=== PATIENT | female | born 2000 | race Caucasian/White ===

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

== ENCOUNTER 2022-01-09 02:06 | Day surgery (SDC) | payer BC ==
[~2022-01-09] VITALS: Wt 53.4 kg
[~2022-01-09 02:06] MED LIST changes: +CIPR500 PO; +METR500 PO
== END 2022-01-09 16:25 | disposition home or self-care (01) ==
LOC: ATC 02:06
DX: K50.10 Crohn's disease of large intestine without complications (principal)
CPT/HCPCS: A9270; J1200; J2920; J7050; Q5103

== ENCOUNTER 2022-03-06 01:09 | Day surgery (SDC) | payer BC ==
[~2022-03-06] VITALS: Wt 55.3 kg
--- NOTE | 2022-03-06 16:03 | NUR ---
INFUSION REACTION: PATIENT IV BUMPED FROM 20ML/HR TO 40 AND PATIENT INSTANTLY GOT HOT, RED, AND REPORTED A SCRATCHY THROAT AND MILD TIGHTNESS. INFUSION STOPPED. AN ADDITIONAL 40 MG DOSE OF SOLUMEDROL GIEN PER REACTION PROTOCOL. AFTER 5 MIN INFUSION RESTARTED AT 10 ML/HR. PATIENT EXPERIENXING NO FURTHER SYMPTOMS. ATTEMPTED TO CALL THE PROVIDER TO DISCUSS HER REPEATED REACTIONS WITH EACH INFUSION AND THEY ARE UNAVAILABLE. PATIENT IS STABLE AND VITALS STABLE. WILL CALL PROVIDER NEXT WEEK TO NOTIFY
== END 2022-03-06 17:01 | disposition home or self-care (01) ==
LOC: ATC 01:09
DX: K50.90 Crohn's disease, unspecified, without complications (principal); K52.9 Noninfective gastroenteritis and colitis, unspecified
CPT/HCPCS: 96375; 96376; 96413; 96415; A9270; J1200; J2920; J7050; Q5103

== ENCOUNTER 2022-05-01 00:18 | Day surgery (SDC) | payer BC | END 2022-05-01 16:55 | disposition home or self-care (01) | LOC: ATC 00:18 | DX: K50.90 Crohn's disease, unspecified, without complications (principal) | CPT/HCPCS: J1200; J2920; J7050; Q5103 ==

== ENCOUNTER 2022-06-26 01:17 | Day surgery (SDC) | payer BC ==
[2022-06-26 14:12] VITALS: BP 112/65
[2022-06-26 15:15] VITALS: BP 108/52
[2022-06-26 15:30] VITALS: BP 108/61
== END 2022-06-26 17:02 | disposition home or self-care (01) ==
LOC: ATC 01:17
DX: K50.90 Crohn's disease, unspecified, without complications (principal)
CPT/HCPCS: 96375; 96413; 96415; A9270; J1200; J2920; J7050; Q5103

== ENCOUNTER 2022-07-15 10:57 | Emergency (ER) | payer BC, OTHER ==
[~2022-07-15] VITALS: Ht 167.6 cm; Wt 55.8 kg
[2022-07-15 11:59] LABS: BASOPHILS ABSOLUTE AUTO 0.03 K/mm3 (0.00-0.23); BASOPHILS PERCENT AUTO 1 % (0-2); EOSINOPHILS ABSOLUTE AUTO 0.13 K/mm3 (0.00-0.68); EOSINOPHILS PERCENT AUTO 2 % (0-6); Hematocrit 37.5 % (33.0-51.0); IMMATURE GRAN ABSOLUTE AUTO 0.02 K/mm3 (0.00-0.10); IMMATURE GRAN PERCENT AUTO 0 % (0-1); LYMPHOCYTES ABSOLUTE AUTO 1.02 K/mm3 (0.84-5.20); LYMPHOCYTES PERCENT AUTO 16 % (21-46); MONOCYTES ABSOLUTE AUTO 0.71 K/mm3 (0.16-1.47); MONOCYTES PERCENT AUTO 11 % (4-13); Mean Corpuscular HGB 28.9 pg (26.0-34.0); Mean Corpuscular HGB Conc 34.7 g/dL (31.5-36.5); Mean Corpuscular Volume 83 fL (80-100); NEUTROPHILS ABSOLUTE AUTO 4.36 K/mm3 (1.96-9.15); NEUTROPHILS PERCENT AUTO 70 % (41-73); Platelet Count 313 K/mm3 (150-400); RDW Coefficient Variation 13.6 % (11.7-14.2); RDW Standard Deviation 41.6 fL (35.1-46.3); White Blood Cell Count 6.27 K/mm3 (4.00-11.30)
[2022-07-15 12:15] LABS: Albumin, Blood 3.4 g/dL (3.4-5.0); Albumin/Globulin Ratio 0.9 (0.8-1.8); Bilirubin, Total 0.6 mg/dL (0.1-1.0); Bun/Creatinine Ratio 22.4 (12.0-20.0); Calcium, Blood 9.2 mg/dL (8.5-10.1); Creatinine, Blood 0.54 mg/dL (0.40-1.00); Globulin, Blood 3.9 g/dL (2.2-4.0); Potassium, Blood 3.9 mmol/L (3.5-5.5); Total Protein, Blood 7.3 g/dL (6.4-8.2)
[2022-07-15 12:45] LABS: Source, Urine Voided
[2022-07-15 13:04] LABS: Appearance, Urine Clear (Clear); Bilirubin, Urine Neg (Neg); Blood, Urine Neg (Neg); Color, Urine Yellow (P-Yellow); Glucose Qualitative, Urine Neg (Neg); Ketones, Urine 4+ (Neg); Leukocyte Esterase, Urine Neg (Neg); Nitrite, Urine Neg (Neg); Protein, Urine 1+ (Neg); Urobilinogen, Urine NORM (Normal)
[2022-07-15 14:00] VITALS: BP 99/55
[2022-07-15] MEDS ORDERED: METR500 PO (14:45)
[2022-07-15] MEDS ORDERED: CIPR500 PO (14:45)
[2022-07-15] MEDS ORDERED: ONDA4ODT MM (14:45)
[2022-07-15] MEDS ORDERED: METO10 PO (14:45)
[2022-07-15] MEDS ORDERED: OXYC5 PO (14:45)
== END 2022-07-15 14:59 | disposition home or self-care (01) ==
LOC: ER 10:57
PROVIDERS: Student in an Organized Health Care Education/Training Program
DX: K50.90 Crohn's disease, unspecified, without complications (principal); Z79.899 Other long term (current) drug therapy; Z79.52 Long term (current) use of systemic steroids; E03.9 Hypothyroidism, unspecified
CPT/HCPCS: 74177; 80053; 83690; 84703; 85025; A9270; J1885; J2405; J2765; J7030; J7512; Q9967

== ENCOUNTER → 2023-10-06 | Outpatient (CLI) | payer BC ==
[~2023-10-06] MED LIST changes: +METO10 PO; +ONDA4ODT MM; +OXYC5 PO
== END | disposition home or self-care (01) ==
LOC: LAB 10:25 → LAB SHORT 10:25
DX: N89.8 Other specified noninflammatory disorders of vagina (principal)
CPT/HCPCS: 87070; 87205

== ENCOUNTER → 2024-05-12 | Outpatient (CLI) | payer BC ==
[2024-05-15 13:55] LABS: Percent Saturation 28.1 % (15.0-50.0)
== END ==
LOC: LAB SHORT 13:46 → LAB 13:46
PROVIDERS: Registered Nurse Oncology
DX: D50.9 Iron deficiency anemia, unspecified (principal); K50.90 Crohn's disease, unspecified, without complications
CPT/HCPCS: 82728; 83540; 83550

== ENCOUNTER → 2024-10-31 | Outpatient (CLI) | payer BC ==
[2024-10-31 13:16] LABS: BASOPHILS ABSOLUTE AUTO 0.05 K/mm3 (0.00-0.23); BASOPHILS PERCENT AUTO 1 % (0-2); EOSINOPHILS ABSOLUTE AUTO 0.16 K/mm3 (0.00-0.68); EOSINOPHILS PERCENT AUTO 2 % (0-6); Hematocrit 37.2 % (33.0-51.0); Hemoglobin 12.7 g/dL (11.5-16.0); IMMATURE GRAN ABSOLUTE AUTO 0.03 K/mm3 (0.00-0.10); IMMATURE GRAN PERCENT AUTO 0 % (0-1); LYMPHOCYTES ABSOLUTE AUTO 1.67 K/mm3 (0.84-5.20); LYMPHOCYTES PERCENT AUTO 23 % (21-46); MONOCYTES ABSOLUTE AUTO 0.60 K/mm3 (0.16-1.47); MONOCYTES PERCENT AUTO 8 % (4-13); Mean Corpuscular HGB Conc 34.1 g/dL (31.5-36.5); Mean Corpuscular Volume 88 fL (80-100); NEUTROPHILS ABSOLUTE AUTO 4.67 K/mm3 (1.96-9.15); NEUTROPHILS PERCENT AUTO 65 % (41-73); NRBC ABSOLUTE 0.00 K/mm3 (0.00-0.02); NRBC Auto 0.0 /100 WBC (0.0-0.2); Platelet Count 386 K/mm3 (150-400); RDW Coefficient Variation 12.5 % (11.7-14.2); RDW Standard Deviation 39.9 fL (35.1-46.3)
[2024-10-31 14:39] LABS: C-REACTIVE PROTEIN, EXT RANGE <0.290 mg/dL (0.000-0.300); Ferritin, Serum 64 ng/mL (8-252)
[2024-10-31 14:40] LABS: Alanine Aminotransfer (ALT/SGP 25 U/L (12-78); Albumin, Blood 3.8 g/dL (3.4-5.0); Albumin/Globulin Ratio 1.2 (0.8-1.8); Anion Gap 9 mmol/L (3-11); Aspartate Aminotrans (AST/SGOT 14 U/L (12-37); Bilirubin, Total 0.3 mg/dL (0.1-1.0); Blood Urea Nitrogen 8 mg/dL (8-24); CHOL/HDL RATIO 2.8; CO2, Blood 25 mmol/L (21-32); Calcium, Blood 8.6 mg/dL (8.5-10.1); Chloride, Blood 107 mmol/L (98-108); Cholesterol 150 mg/dL (50-200); Creatinine, Blood 0.58 mg/dL (0.40-1.00); Globulin, Blood 3.3 g/dL (2.2-4.0); Glucose, Blood 92 mg/dL (70-99); HDL Cholesterol 54 mg/dL (>39); LDL/HDL RATIO 1.4; Low Density Lipoprotein Chol 77 mg/dL (0-110); Potassium, Blood 4.1 mmol/L (3.5-5.5); Sodium, Blood 137 mmol/L (136-145); Thyroid Stimulating Hormone 1.410 uIU/mL (0.360-4.800); Total Protein, Blood 7.1 g/dL (6.4-8.2); Triglycerides 96 mg/dL (30-140); Very Low Density Lipoprot Chol 19 mg/dL (6-28)
[2024-11-02 05:34] LABS: TRIIODOTHYRONINE,TOTAL T3 TTL 142 ng/dL (80-200)
== END ==
LOC: LAB 12:34 → LAB SHORT 12:34 → LAB FUT 07-06 16:35 → EDSTATUS 07-06 16:35
PROVIDERS: Nurse Practitioner Family
DX: E55.9 Vitamin D deficiency, unspecified (principal); R53.83 Other fatigue; R51.9 Headache, unspecified; E61.1 Iron deficiency; E03.8 Other specified hypothyroidism; K90.49 Malabsorption due to intolerance, not elsewhere classified; E34.9 Endocrine disorder, unspecified
CPT/HCPCS: 80053; 80061; 82306; 82607; 82728; 83036; 83525; 84439; 84443; 84480; 85025; 86140